=== PATIENT | male | born 1950 | race Asian ===

== ENCOUNTER 2021-05-10 11:50 | Outpatient (CLI) | payer MEDICARE, SELFPAY ==
--- NOTE | 2021-05-10 12:15 | RAD_ITS ---
STUDY: X-RAY - LEFT SHOULDER REASON FOR EXAM: Male, 71 years old. Left shoulder pain. TECHNIQUE: 4 view(s) of the shoulder. COMPARISON: None. FINDINGS: Osteopenia. Mild arthrosis of the glenohumeral joint. Normal acromioclavicular joint. Normal acromion. Sclerosis of the greater tuberosity. The soft tissue structures are unremarkable. Normal visualized pulmonary apex. RAD/Shoulder min 2 Views IMPRESSION: Osteopenia with sclerosis of the greater tuberosity and mild arthrosis of the glenohumeral joint no acute abnormality or erosive changes. Electronically Signed: Yo Oliver MD at 12:36 EST , Service support ,
== END 2021-05-10 23:59 | disposition short-term general hospital (02) ==
PROVIDERS: PCP Internal Medicine; Referring Provider Anesthesiology Pain Medicine; Visit Provider Anesthesiology Pain Medicine
DX: M25.512 Pain in left shoulder (principal)
CPT/HCPCS: 73030